=== PATIENT | female | born 1955 | race Caucasian/White ===

== ENCOUNTER 2017-05-31 12:15 | Emergency (ER) | payer MEDICARE ==
[~2017-05-31] VITALS: Ht 165.1 cm; Wt 145.5 kg
[2017-05-31] MEDS ORDERED: WELLBUTRIN SR150 M3 PO (12:34)
[2017-05-31] MEDS ORDERED: BUSPAR 15MG TAB15 MG PO (12:34)
[2017-05-31] MEDS ORDERED: HYDRALAZINE HYD50 MG PO (12:35)
[2017-05-31] MEDS ORDERED: HYDROCHLOROTHIA1 T15 PO (12:35)
[2017-05-31] MEDS ORDERED: VESICARE5 MG PO (12:36)
[2017-05-31] MEDS ORDERED: DESYREL 100MG100 MG PO (12:36)
[2017-05-31] MEDS ORDERED: PAROXETINE HYDR20 MG PO (12:36)
[2017-05-31] MEDS ORDERED: NASACORT A55 MCG/Act NS (12:37)
[2017-05-31] MEDS ORDERED: ALLERCLEAR10 MG PO (12:37)
[2017-05-31] MEDS ORDERED: TYLENOL 500MG500 MG PO (12:37)
[2017-05-31] MEDS ORDERED: ALAWAY 10 ML10 ML OP (12:38)
[2017-05-31] MEDS ORDERED: MACROBID 100 M100 MG PO (13:38)
[2017-05-31 14:02] VITALS: BP 136/78
== END 2017-05-31 14:02 | disposition home or self-care (01) ==
LOC: ED 12:15
DX: R30.0 Dysuria (principal); R31.9 Hematuria, unspecified; R35.0 Frequency of micturition; I10 Essential (primary) hypertension; F41.9 Anxiety disorder, unspecified; F32.9 Major depressive disorder, single episode, unspecified

== ENCOUNTER → 2017-11-28 | Outpatient (CLI) | payer MEDICARE ==
[~2017-11-28] MED LIST: ALAWAY 10 ML10 ML OP; ALLERCLEAR10 MG PO; BUSPAR 15MG TAB15 MG PO; DESYREL 100MG100 MG PO; HYDRALAZINE HYD50 MG PO; HYDROCHLOROTHIA1 T15 PO; MACROBID 100 M100 MG PO; NASACORT A55 MCG/Act NS; PAROXETINE HYDR20 MG PO; TYLENOL 500MG500 MG PO; VESICARE5 MG PO; WELLBUTRIN SR150 M3 PO
[2017-11-28 11:09] LABS: EOS # 0.2 (0.04-0.40); EOS % 2.3 % (1.0-5.0); HEMATOCRIT 38.9 % (37.0-47.0); LYMPH# 1.8 (1.50-4.00); MEAN CELL VOLUME 89 fl (78-100); MEAN CORPUSCULAR HEMOGLOBIN 30 pg (27-31); MEAN CORPUSCULAR HGB CONC 33 g/dL (33-37); MEAN PLATELET VOLUME 11.1 fl (7.4-10.4); MONO # 0.6 (0.20-0.80); NEU # 6.9 (1.40-6.50); PLATELET COUNT 277 K/mm3 (130-400); RED BLOOD COUNT 4.38 M/mm3 (4.10-5.30); WHITE BLOOD COUNT 9.7 K/mm3 (4.8-10.8)
[2017-11-28 11:40] LABS: ALBUMIN 3.9 g/dL (3.5-5.0); BUN/CREATININE RATIO 41.2 (6.0-26.0); POTASSIUM 3.4 mmol/L (3.6-5.0); TOTAL BILIRUBIN 1.8 mg/dL (0.2-1.3); TOTAL PROTEIN 7.6 g/dL (6.3-8.2)
[2017-11-28 12:19] LABS: URINE APPEARANCE CLOUDY; URINE COLOR DK YELLOW
[2017-11-28 12:20] LABS: URINE BILIRUBIN NEGATIVE (NEGATIVE); URINE BLOOD TRACE (NEGATIVE); URINE GLUCOSE NEGATIVE (NEGATIVE); URINE KETONE NEGATIVE (NEGATIVE); URINE LEUKOCYTE ESTERASE TRACE (NEGATIVE); URINE NITRATE NEGATIVE (NEGATIVE); URINE PROTEIN(semi-quant) 2+ mg/dL (NEGATIVE); URINE UROBILINOGEN NORMAL (NORMAL)
[2017-11-28 12:22] LABS: URINE MUCUS PRESENT (NOT PRESENT)
[2017-11-29 09:18] LABS: C-REACTIVE PROTEIN XXX
== END ==
LOC: LAB 11-27 10:29
PROVIDERS: Nurse Practitioner Family
DX: Z00.00 Encounter for general adult medical examination without abnormal findings (principal); I10 Essential (primary) hypertension; F41.9 Anxiety disorder, unspecified; F32.9 Major depressive disorder, single episode, unspecified; K58.9 Irritable bowel syndrome, unspecified; K21.9 Gastro-esophageal reflux disease without esophagitis; R32 Unspecified urinary incontinence; M19.90 Unspecified osteoarthritis, unspecified site; Z79.899 Other long term (current) drug therapy; Z88.2 Allergy status to sulfonamides; Z88.8 Allergy status to other drugs, medicaments and biological substances

== ENCOUNTER → 2018-01-06 | Outpatient (CLI) | payer MEDICARE | LOC: RAD 10:45 → MAMMO 10:51 | DX: M19.90 Unspecified osteoarthritis, unspecified site (principal); Z88.2 Allergy status to sulfonamides; Z88.8 Allergy status to other drugs, medicaments and biological substances ==

== ENCOUNTER 2018-12-23 10:30 | Emergency (ER) | payer MEDICARE ==
[~2018-12-23] VITALS: Ht 165.1 cm; Wt 147.3 kg
[2018-12-23] MEDS ORDERED: TYLENOL EXTRA500 M2 PO (10:48)
[2018-12-23] MEDS ORDERED: AMBIEN10 MG PO (10:50)
[2018-12-23 11:21] LABS: EOS # 0.1 (0.04-0.40); EOS % 2.7 % (1.0-5.0); HEMATOCRIT 39.5 % (37.0-47.0); HEMOGLOBIN 13.4 g/dL (12.5-16.0); LYMPH# 1.3 (1.50-4.00); MEAN CELL VOLUME 89 fl (78-100); MEAN CORPUSCULAR HEMOGLOBIN 30 pg (27-31); MEAN CORPUSCULAR HGB CONC 34 g/dL (33-37); MEAN PLATELET VOLUME 10.6 fl (7.4-10.4); MONO # 0.4 (0.20-0.80); NEU # 3.4 (1.40-6.50); PLATELET COUNT 244 K/mm3 (130-400); RED BLOOD COUNT 4.46 M/mm3 (4.10-5.30); RED CELL DISTRIBUTION WIDTH 13.1 % (11.5-14.5); WHITE BLOOD COUNT 5.2 K/mm3 (4.8-10.8)
[2018-12-23 11:44] LABS: ALBUMIN 4.1 g/dL (3.5-5.0); CALCIUM 9.8 mg/dL (8.4-10.2); POTASSIUM 3.7 mmol/L (3.6-5.0); TOTAL PROTEIN 7.6 g/dL (6.3-8.2)
[2018-12-23 11:51] LABS: TROPONIN-I < 0.03 ng/mL (0.00-0.06)
[2018-12-23 12:05] LABS: D-DIMER 0.66 mg/L FEU (0.15-0.50)
[2018-12-23 12:13] LABS: URINE APPEARANCE CLEAR; URINE BILIRUBIN NEGATIVE (NEGATIVE); URINE BLOOD NEGATIVE (NEGATIVE); URINE COLOR YELLOW; URINE GLUCOSE NEGATIVE (NEGATIVE); URINE KETONE NEGATIVE (NEGATIVE); URINE LEUKOCYTE ESTERASE NEGATIVE (NEGATIVE); URINE MUCUS PRESENT (NOT PRESENT); URINE NITRATE NEGATIVE (NEGATIVE); URINE PROTEIN(semi-quant) TRACE mg/dL (NEGATIVE); URINE UROBILINOGEN NORMAL (NORMAL); URINE WBC 0-1 /hpf (0-3)
[2018-12-23 13:53] VITALS: BP 145/76
== END 2018-12-23 14:25 | disposition home or self-care (01) ==
LOC: ED 10:30
PROVIDERS: Physician Assistant
DX: R06.00 Dyspnea, unspecified (principal); M79.89 Other specified soft tissue disorders; I10 Essential (primary) hypertension; J45.909 Unspecified asthma, uncomplicated; Z88.2 Allergy status to sulfonamides; Z88.5 Allergy status to narcotic agent; Z87.891 Personal history of nicotine dependence; Z90.49 Acquired absence of other specified parts of digestive tract; Z96.652 Presence of left artificial knee joint
CPT/HCPCS: J1650; Q9967

== ENCOUNTER → 2018-12-24 | Outpatient (CLI) | payer MEDICARE ==
[2018-12-23 13:53] VITALS: BP 145/76
[~2018-12-24] MED LIST changes: +AMBIEN10 MG PO; +TYLENOL EXTRA500 M2 PO
== END ==
LOC: RAD 10:29
DX: R60.0 Localized edema (principal); R79.1 Abnormal coagulation profile; R06.00 Dyspnea, unspecified; R06.02 Shortness of breath

== ENCOUNTER 2019-07-30 07:18 | Emergency (ER) | payer MEDICARE ==
[~2019-07-30] VITALS: Ht 162.6 cm; Wt 145.0 kg
[2019-07-30 07:55] LABS: EOS # 0.1 (0.04-0.40); EOS % 0.6 % (1.0-5.0); HEMATOCRIT 43.4 % (37.0-47.0); HEMOGLOBIN 14.5 g/dL (12.5-16.0); MEAN CELL VOLUME 89 fl (78-100); MEAN CORPUSCULAR HEMOGLOBIN 30 pg (27-31); MEAN CORPUSCULAR HGB CONC 33 g/dL (33-37); MEAN PLATELET VOLUME 10.6 fl (7.4-10.4); NEU # 6.6 (1.40-6.50); PLATELET COUNT 299 K/mm3 (130-400); RED CELL DISTRIBUTION WIDTH 13.1 % (11.5-14.5); WHITE BLOOD COUNT 10.7 K/mm3 (4.8-10.8)
[2019-07-30] MEDS ORDERED: VITAMIN D3400 UNIT PO (07:55)
[2019-07-30] MEDS ORDERED: ANASTROZOLE1 M1 PO (07:56)
[2019-07-30] MEDS ORDERED: DITROPAN 5MG TAB5 MG PO (07:56)
[2019-07-30] MEDS ORDERED: CALCIUM 600600 MG PO (07:57)
[2019-07-30] MEDS ORDERED: PROAIR HFA0.09 MG/AC IH (07:58)
[2019-07-30 08:02] LABS: POTASSIUM 3.9 mmol/L (3.5-5.1); SODIUM 136 mmol/L (136-145)
[2019-07-30 08:03] LABS: CALCIUM 9.9 mg/dL (8.3-10.5)
[2019-07-30 08:04] LABS: GLUCOSE 87 mg/dL (65-105); TOTAL PROTEIN 7.8 g/dL (6.2-8.1)
[2019-07-30 08:05] LABS: CARBON DIOXIDE 27 mmol/L (23-31)
[2019-07-30 08:06] LABS: TOTAL BILIRUBIN 1.5 mg/dL (0.2-1.2)
[2019-07-30 08:10] LABS: AST-SGOT 14 U/L (5-34)
[2019-07-30 08:11] LABS: ALT/SGPT 20 U/L (0-55)
[2019-07-30 08:17] LABS: TROPONIN-I < 0.03 ng/mL (<0.030)
[2019-07-30 09:02] VITALS: BP 162/95
== END 2019-07-30 09:03 | disposition home or self-care (01) ==
LOC: ED 07:18
PROVIDERS: Nurse Practitioner Family
DX: F41.9 Anxiety disorder, unspecified (principal); I10 Essential (primary) hypertension; J45.909 Unspecified asthma, uncomplicated; Z90.49 Acquired absence of other specified parts of digestive tract; Z98.890 Other specified postprocedural states; Z88.1 Allergy status to other antibiotic agents; Z87.891 Personal history of nicotine dependence